=== PATIENT | female | born 1985 | race Caucasian/White ===

== ENCOUNTER 2020-02-28 14:46 | Emergency (ER) | payer OTHER ==
[~2020-02-28] VITALS: Ht 162.6 cm; Wt 77.0 kg
[2020-02-28 15:15] VITALS: BP 123/74
[2020-02-28] MEDS ORDERED: AMOX-422 PO (16:27)
== END 2020-02-28 16:43 | disposition home or self-care (01) ==
LOC: ER 14:47
DX: J02.9 Acute pharyngitis, unspecified (principal); R59.0 Localized enlarged lymph nodes; Z79.2 Long term (current) use of antibiotics
CPT/HCPCS: 87880; 99283